=== PATIENT | female | born 1990 ===

== ENCOUNTER 2022-03-18 06:20 | Day surgery (SDC) | payer OTHER ==
[~2022-03-18] VITALS: Ht 167.6 cm; Wt 117.9 kg
[2022-03-18] MEDS ORDERED: MORGIDOX100 MG PO (09:52)
== END 2022-03-18 14:25 | disposition home or self-care (01) ==
LOC: CIR.AMB 06:20
PROVIDERS: ATTEND Obstetrics & Gynecology
DX: N92.1 Excessive and frequent menstruation with irregular cycle (principal); D25.0 Submucous leiomyoma of uterus; N84.0 Polyp of corpus uteri; N72 Inflammatory disease of cervix uteri; F17.210 Nicotine dependence, cigarettes, uncomplicated; Z20.822 Contact with and (suspected) exposure to COVID-19